=== PATIENT | female | born 1935 | race Two or more races ===

== ENCOUNTER 2018-07-07 12:25 | Inpatient (IN) | payer MEDICARE, MEDICAID | END 2018-07-18 16:43 | LOC: ER 12:25 → TELE 17:52 → TELE-WESTW 21:00 | DX: G93.41 Metabolic encephalopathy (principal); N18.6 End stage renal disease; I13.2 Hypertensive heart and chronic kidney disease with heart failure and with stage 5 chronic kidney disease, or end stage renal disease; N17.9 Acute kidney failure, unspecified; I24.9 Acute ischemic heart disease, unspecified; I48.1 Persistent atrial fibrillation; I50.22 Chronic systolic (congestive) heart failure; E87.5 Hyperkalemia; Z99.2 Dependence on renal dialysis; E11.22 Type 2 diabetes mellitus with diabetic chronic kidney disease; D53.9 Nutritional anemia, unspecified; E11.40 Type 2 diabetes mellitus with diabetic neuropathy, unspecified; I25.10 Atherosclerotic heart disease of native coronary artery without angina pectoris ==